=== PATIENT | male | born 1980 | race Two or more races ===

== ENCOUNTER → 2017-03-18 | Outpatient (CLI) | payer OTHER ==
--- NOTE | 2017-03-18 11:36 | REP ---
Chest two views HISTORY: Shortness of breath Comparison: 03/08/2017 The lungs are clear. The heart is normal in size. The pulmonary vasculature is normal in appearance. The bony structure is intact. IMPRESSION: No acute disease. Signed by Mart Salmon MD 03/18/2017 11:27 A
== END ==
LOC: M LRY 11:09
PROVIDERS: ATTEND Nurse Practitioner Family
DX: R06.02 Shortness of breath (principal)